=== PATIENT | female | born 1980 | race Caucasian/White ===

== ENCOUNTER 2017-05-02 19:39 | Emergency (ER) | payer BC ==
[2017-05-02 20:04] VITALS: BP 147/75
--- NOTE | 2017-05-03 09:18 | ER ---
DATE SEEN: 05/02/2017 REASON FOR VISIT: Not feeling well. HISTORY OF PRESENT ILLNESS: This is a 37-year-old female who has not felt well for several months. She has nonspecific symptoms that include pain in the right hip, right upper back, and also the right upper quadrant. Today, she had one episode of vomiting and she is brought by the mom to the ER. This happened after work. She does complain of some constipation and fatigue but denies fever or chills. PAST MEDICAL HISTORY: Anxiety and depression. CURRENT MEDICATIONS: 1. Fluoxetine. 2. Hydroxyzine. SOCIAL HISTORY: Denies smoking or drinking in excess. PHYSICAL EXAMINATION: GENERAL: She is not in distress. VITAL SIGNS: Her blood pressure is 147/75, temp 97.8. EARS, NOSE, AND THROAT: Negative. NECK: Trachea is midline. CHEST: Clear. ABDOMEN: Soft. There is tenderness to the right upper quadrant. Bowel sounds are present. No masses. MENTAL STATUS: Flat affect. LABORATORY DATA: CBC, CMP, UA negative. Urine negative. Chest x-ray was unremarkable and abdominal ultrasound showed some hemangiomas on the liver. IMPRESSION: 1. Nonspecific abdominal pain. 2. Right hip pain. 3. Anxiety and depression. PLAN: Reassurance. Fluids. Use [id number] medications for constipation. Return p.r.n. /[id number] SARAH/CARRILLO
--- NOTE | 2017-05-04 13:17 | CR ---
INDICATION: Back pain right upper quadrant. CHEST: PA and lateral views of the chest 05/02/2017 were compared with a PA view of 11/06/2016 and revealed the heart to be normal in size and shape. Mediastinum and bony thorax were grossly unremarkable. No active infiltrate, effusion, contusion, or pneumothorax was suggested. There is evidence of exogenous obesity. IMPRESSION: Stable chest. No acute process. Findings as noted above. MTDD
--- NOTE | 2017-05-04 13:24 | US ---
INDICATION: Cough, back pain. RIGHT UPPER QUADRANT/GALLBLADDER ULTRASOUND: Multiple ultrasonic images were obtained 05/02/2017. No comparisons were available. Two echogenic foci were noted, one in the anterior/superior right lobe of the liver, and one more inferiorly, measuring 2 x 1.7 x 1.8 cm, and 1.7 x 2.43 x 1.75 cm. These echogenic areas are almost definitely of benign origin in this age group and on the basis of hemangiomata. The liver was otherwise unremarkable. No biliary tree dilatation was suggested. The gallbladder measured 6.6 x 1.5 x 2.5 cm. No calculi, sludge, pericholecystic fluid, or positive ultrasonic Mcfarland sign were noted. No wall thickening of the gallbladder was identified. The common bile duct was normal in caliber at 2.6 mm. The IVC was phasic. The right kidney measured 10.7 x 4.4 x 5 cm and appeared unremarkable. The pancreas was not adequately visualized due to a large amount of intestinal gas centrally. No mass lesions or free fluid collections were identified. The abdominal aorta was not evaluated. IMPRESSION: 1. There appear to be two hemangiomas in the liver. 2. Negative gallbladder. 3. Pancreas not adequately visualized due to intestinal gas. MTDD
== END 2017-05-02 21:34 | disposition home or self-care (01) ==
LOC: FB.ED 19:39
DX: R10.11 Right upper quadrant pain (principal); M25.551 Pain in right hip; F32.9 Major depressive disorder, single episode, unspecified; F41.9 Anxiety disorder, unspecified
CPT/HCPCS: 36415; 71046; 76705; 80053; 81001; 81025; 85025; 99284

== ENCOUNTER 2017-06-05 07:32 | Day surgery (SDC) | payer BC ==
[2017-06-05] MEDS ORDERED: Lactated Ringers 1,000 ML IV SCH (08:15)
[2017-06-05] MEDS ORDERED: Sodium Chloride 0.9% 10 ML Syringe FLUSH PRN (08:15)
[2017-06-05] MEDS ORDERED: Midazolam 1 MG/ML 2 ML SDV IV ONE (09:00)
[2017-06-05] MEDS ORDERED: Propofol 200 MG/20 ML SDV IV ONE (09:00)
--- NOTE | 2017-06-05 09:32 | PCM.OPNOTE ---
- General Post-Op/Procedure Note Date of Surgery/Procedure: 06/05/17 Operative Procedure(s): egd with bx Findings: gastroduodenitis esophagitis Pre Op Diagnosis: epigastric abd pain Post-Op Diagnosis: gastroduodenitis. esophagitis Anesthesia Technique: MAC Primary Surgeon: Josh Steel Anesthesia Provider: Enoch Mitchell Pathology: stomach, duodenum, and distal esophagus Complications: None Condition: Good Free Text/Narrative:: see dictation
[2017-06-05 11:17] VITALS: BP 113/62
--- NOTE | 2017-06-11 11:52 | OR ---
DATE OF OPERATION: 06/05/2017 SURGEON: Josh Steel MD PROCEDURE PERFORMED: EGD with cold forceps biopsy. PREOPERATIVE DIAGNOSIS: Epigastric abdominal pain. POSTOPERATIVE DIAGNOSES: Gastroduodenitis and esophagitis. INDICATIONS FOR PROCEDURE: This is a 37-year-old white female who was referred with the above-mentioned complaints. She was offered and accepted EGD. DESCRIPTION OF PROCEDURE: After an excellent IV sedation was administered, the bite block was inserted. The flexible endoscope was passed without difficulty down the patient's esophagus into the stomach. The stomach was insufflated, scope was passed through the pylorus to the second portion of the duodenum and slowly withdrawn. Following findings were noted: In the stomach and duodenum, mild inflammation. Biopsies were taken. GE junction measured approximately 40 cm. Mild erythema in the distal esophagus as well, and biopsies were taken. The stomach was deflated and the scope was removed. The patient tolerated the procedure well, and was taken to recovery room in good condition. /[id number] /IGORL
== END 2017-06-05 10:45 | disposition home or self-care (01) ==
LOC: FB.SDS 07:32
PROVIDERS: ATTEND Surgery
DX: K29.80 Duodenitis without bleeding (principal); K29.50 Unspecified chronic gastritis without bleeding; K20.9 Esophagitis, unspecified; E66.9 Obesity, unspecified; F32.9 Major depressive disorder, single episode, unspecified; J45.909 Unspecified asthma, uncomplicated; E55.9 Vitamin D deficiency, unspecified; Z91.040 Latex allergy status; Z79.899 Other long term (current) drug therapy; Z87.891 Personal history of nicotine dependence
CPT/HCPCS: 43239; 81025; 88305; 88342; J2250; J2704; J7120